=== PATIENT | female | born 1960 | race Caucasian/White ===

== ENCOUNTER → 2023-01-17 10:23 | Outpatient (CLI) | payer MEDICARE, SELFPAY ==
--- NOTE | 2023-01-17 | DI.US.S_ITS ---
LIMITED ULTRASOUND OF RIGHT BREAST: 01/17/2023 CLINICAL: Focal right breast pain. Comparison is made to exams dated: 01/17/2023 mammogram - [facility] and 12/31/2022 mammogram - outside location. Color flow and real-time ultrasound of the right breast retroareolar were performed. Long scale images of the real-time examination were reviewed. No significant abnormalities were seen sonographically in the right breast in the region of pain. IMPRESSION: NEGATIVE There is no sonographic evidence of malignancy. No mass or cyst seen. Exam findings were conveyed to the patient. Patient is advised to monitor for significant change. Clinical follow-up as needed. A 1 year screening mammogram is recommended. This exam was interpreted at Station ID: [id number]. Electronically Signed By: Alexei Joseph M.D. slc/:01/17/2023 11:47:30 letter sent: Normal Exam Ultrasound BI-RADS: 1 Negative
--- NOTE | 2023-01-17 | DI.MG.S_ITS ---
UNILATERAL RIGHT DIGITAL DIAGNOSTIC MAMMOGRAM 3D/2D WITH AUGMENTATION: 01/17/2023 CLINICAL: Right breast pain. Comparison is made to exam dated: 12/31/2022 mammogram - outside location. The right breast is heterogeneously dense, which may obscure small masses (category c / 51-75% glandular tissue). No significant masses, calcifications, or other findings are seen in the breast. Stable right breast implant. IMPRESSION: INCOMPLETE: NEEDS ADDITIONAL IMAGING EVALUATION No mammographic evidence of malignancy. A targeted ultrasound is recommended and will immediately follow. Based on Tyrer-Cuzick model (a risk assessment model), the patient's lifetime risk is 20.8% and her 10 year risk is 9.4%. If a patient has an elevated risk, a more comprehensive evaluation should be considered and/or a referral to a genetic counselor. The [employer], [employer], and NCCN Guidelines advise the consideration of Breast MRI as an adjunct to screening mammography in patients whose Lifetime risk to develop breast cancer is 20% or higher. This exam was interpreted at Station ID: [id number]. NOTE: For mammograms, a report in lay terms will be sent to the patient. Approximately 15% of breast malignancies will not be visualized mammographically. In the management of a palpable breast mass, a negative mammogram must not discourage biopsy of a clinically suspicious lesion. Electronically Signed By: Alexei Joseph M.D. slc/:01/17/2023 11:23:00 ACR BI-RADS Category 0: Incomplete [id number]
== END ==
PROVIDERS: PCP Family Medicine; Referring Provider Family Medicine; Visit Provider Family Medicine
DX: N64.4 Mastodynia (principal); R92.2 Inconclusive mammogram
CPT/HCPCS: 76642; 77065; G0279

== ENCOUNTER → 2024-01-02 13:26 | Outpatient (CLI) | payer MEDICARE, SELFPAY ==
--- NOTE | 2024-01-02 13:27 | DI.MRI.S_ITS ---
PROCEDURE: MR THORACIC SPINE WO CON INDICATIONS: Pain in thoracic spine TECHNIQUE: Noncontrast sagittal T1 spine echo and T2 fast spin echo, sagittal STIR, and T2 fast spin echo through the thoracic spine. COMPARISON: None. FINDINGS: Image quality: Excellent. Alignment and Curvature: There is normal bony alignment. Bone Marrow: Marrow is of normal overall signal. No acute vertebral body compression fractures. Spinal Cord: Visualized spinal cord is normal in size and signal. Paraspinous Soft Tissues: No paravertebral masses. Disc space levels: Multilevel disc desiccation and diffuse disc bulge, causing mild multilevel canal stenosis. No evidence of neural impingement. No significant foraminal stenosis. IMPRESSION: Multilevel degenerative disc disease. No evidence of neural impingement. Dictated by: Gypsy Carcamo M.D. on 01/02/2024 at 15:16 Approved by: Gypsy Carcamo M.D. on 01/02/2024 at 15:17
== END ==
LOC: MRI 13:27
PROVIDERS: Referring Provider Student in an Organized Health Care Education/Training Program; Visit Provider Student in an Organized Health Care Education/Training Program
DX: M51.34 Other intervertebral disc degeneration, thoracic region (principal); M25.511 Pain in right shoulder; G89.29 Other chronic pain
CPT/HCPCS: 72146

== ENCOUNTER → 2024-01-23 15:12 | Outpatient (CLI) | payer MEDICARE, SELFPAY ==
--- NOTE | 2024-01-23 15:13 | DI.MG.S_ITS ---
BILATERAL DIGITAL SCREENING MAMMOGRAM 3D/2D WITH CAD WITH AUGMENTATION: 01/23/2024 CLINICAL: Routine screening. Family history of breast cancer. Comparison is made to exam dated: 12/31/2022 mammogram - outside location. Both breasts are heterogeneously dense, which may obscure small masses (category c / 51-75% glandular tissue). Current study was also evaluated with a Computer Aided Detection (CAD) system. Bilateral breast implants are present. No significant masses, calcifications, or other findings are seen in either breast. There has been no significant interval change. IMPRESSION: NEGATIVE There is no mammographic evidence of malignancy. A 1 year screening mammogram is recommended. Consider additional supplemental MRI screening. Based on Tyrer-Cuzick model (a risk assessment model), the patient's lifetime risk is 20.2% and her 10 year risk is 9.4%. If a patient has an elevated risk, a more comprehensive evaluation should be considered and/or a referral to a genetic counselor. The [place] [employer], [employer], and NCCN Guidelines advise the consideration of Breast MRI as an adjunct to screening mammography in patients whose Lifetime risk to develop breast cancer is 20% or higher. This exam was interpreted at Station ID: [id number]. NOTE: For mammograms, a report in lay terms will be sent to the patient. Approximately 15% of breast malignancies will not be visualized mammographically. In the management of a palpable breast mass, a negative mammogram must not discourage biopsy of a clinically suspicious lesion. Electronically Signed By: David Plasencia M.D. lc/:01/24/2024 10:45:25 letter sent: Normal Exam ACR BI-RADS Category 1: Negative [id number]
== END ==
DX: Z12.31 Encounter for screening mammogram for malignant neoplasm of breast (principal); Z80.3 Family history of malignant neoplasm of breast; R92.333 Mammographic heterogeneous density, bilateral breasts
CPT/HCPCS: 77063; 77067

== ENCOUNTER → 2024-04-10 08:02 | Outpatient (CLI) | payer MEDICARE, SELFPAY ==
[2024-04-10 20:59] LABS: Hemoglobin A1C% w Est Avg Glu 4.7 % (4.0-6.0)
== END ==
DX: Z13.1 Encounter for screening for diabetes mellitus (principal); C13.1 Malignant neoplasm of aryepiglottic fold, hypopharyngeal aspect
CPT/HCPCS: 36415; 83036

== ENCOUNTER → 2024-04-26 10:38 | Outpatient (CLI) | payer MEDICARE, SELFPAY ==
[2024-04-27 13:12] LABS: Candida species Negative (Negative); Gardnerella vaginalis Negative (Negative); Trichomoas vaginalis Negative (Negative)
== END ==
PROVIDERS: Visit Provider Obstetrics & Gynecology
DX: N89.8 Other specified noninflammatory disorders of vagina (principal)
CPT/HCPCS: 87480; 87510; 87660

== ENCOUNTER → 2024-04-30 12:00 | Outpatient (CLI) | payer MEDICARE, SELFPAY ==
--- NOTE | 2024-04-30 12:04 | DI.RAD.S_ITS ---
PROCEDURE: XR THORACIC SPINE 2V INDICATIONS: Pain TECHNIQUE: 3 views of the thoracic spine were acquired. COMPARISON: None. FINDINGS: Bones: No fractures or dislocations. No suspicious bony lesions. 12 pairs of ribs are noted, and appear intact where visualized. The thoracic spine is nor normal in curvature and alignment. Minimal degenerative disc disease seen in the midthoracic spine. Soft tissues: Alignment created IMPRESSION: Minimal degenerative disc disease in the midthoracic spine. Dictated by: Abraham Cope M.D. on 05/01/2024 at 15:50 Approved by: Abraham Cope M.D. on 05/01/2024 at 15:51
== END ==
LOC: RAD 12:03
PROVIDERS: Referring Provider Student in an Organized Health Care Education/Training Program; Visit Provider Student in an Organized Health Care Education/Training Program
DX: M54.6 Pain in thoracic spine (principal); G89.29 Other chronic pain
CPT/HCPCS: 72070

== ENCOUNTER → 2024-05-07 08:11 | Outpatient (CLI) | payer MEDICARE, SELFPAY ==
--- NOTE | 2024-05-07 08:12 | DI.MRI.S_ITS ---
PROCEDURE: MR THORACIC SPINE WO CON INDICATIONS: CHRONIC RIGHT SIDED THORACIC BACK PAIN TECHNIQUE: Noncontrast sagittal T1 spine echo and T2 fast spin echo, sagittal STIR, and T2 fast spin echo through the thoracic spine. COMPARISON: [facility], CR, XR CERVICAL SPINE 2 OR 3 VIEWS, 11/28/2023, 9:27. [facility], MR, MR CERVICAL SPINE WITHOUT CONTRAST, 08/29/2022, 9:19. [facility], MR, MR THORACIC SPINE WO CON, 01/02/2024, 13:36. FINDINGS: Image quality: Excellent. Alignment and Curvature: There is normal bony alignment. Bone Marrow: Marrow is of normal overall signal. No acute vertebral body compression fractures. Spinal Cord: Visualized spinal cord is normal in size and signal. Paraspinous Soft Tissues: No paravertebral masses. Miscellaneous: On axial images, central canal and foramina appear widely patent at all scanned levels. Minimal disc bulges are present at T4-T5 and T5-T6. There is mild multilevel facet hypertrophy, spanning from T8-T9 to T12-L1. IMPRESSION: 1. No canal stenosis or foraminal stenosis. 2. Mild multilevel lower thoracic facet arthropathy. Dictated by: Shine Redd M.D. on 05/07/2024 at 10:35 Approved by: Shine Redd M.D. on 05/07/2024 at 10:40
== END ==
PROVIDERS: Referring Provider Student in an Organized Health Care Education/Training Program; Visit Provider Student in an Organized Health Care Education/Training Program
DX: M47.814 Spondylosis without myelopathy or radiculopathy, thoracic region (principal); M25.511 Pain in right shoulder; M54.6 Pain in thoracic spine; G89.29 Other chronic pain
CPT/HCPCS: 72146

== ENCOUNTER → 2024-09-25 15:31 | Outpatient (CLI) | payer MEDICARE, SELFPAY ==
[2024-09-25 16:27] LABS: Influenza A - CEPHEID Flu A NEGATIVE (NEGATIVE); Influenza B - CEPHEID Flu B NEGATIVE (NEGATIVE); Respiratory Syncytial Virus Negative (Negative)
[2024-09-25 16:36] LABS: COVID-19 CEPHEID 4-PLEX PCR Negative (Negative)
== END ==
PROVIDERS: Visit Provider Nurse Practitioner Family
DX: R05.1 Acute cough (principal); J02.9 Acute pharyngitis, unspecified
CPT/HCPCS: 0241U; 87070